=== PATIENT | male | born 1970 | race Caucasian/White ===

== ENCOUNTER 2016-05-08 15:46 | Day surgery (SDCO) | payer OTHER ==
[2016-05-08 16:17] LABS: BASOPHIL 0.5 % (0-2); EOSINOPHIL 1.3 % (0-5); HCT 42.8 % (42.0-52.0); HGB 17.7 g/dl (13.2-18.0); LYMPHOCYTE 30.7 % (15-48); MCH 36.5 pg (25.0-31.0); MCHC 41.4 g/dL (32.0-36.0); MCV 88.2 fL (78.0-100.0); MONOCYTE 17.2 % (0-12); MPV 9.7 fL (6.0-9.5); NEUTROPHIL 50.3 % (41-80); PLT 290 K/uL (150-400); RBC 4.85 M/uL (4.70-6.00); RDW 12.1 % (11.5-14.0); WBC 9.3 K/uL (4.0-10.5)
[2016-05-08 16:43] LABS: CREATININE 0.5 mg/dL (0.7-1.2); POTASSIUM 4.1 mmol/L (3.5-5.1)
[2016-05-08 17:21] LABS: BILIRUBIN NEGATIVE (NEGATIVE); BLOOD TRACE-INTACT Ery/uL (NEGATIVE); CLARITY CLEAR (CLEAR); COLOR COLORLESS (YELLOW); GLUCOSE (U) 3+ mg/dL (NORMAL); KETONE (U) NEGATIVE (NEGATIVE); LEUKOCYTES NEGATIVE Leu/uL (NEGATIVE); NITRITE NEGATIVE (NEGATIVE); PROTEIN NEGATIVE (NEGATIVE); UROBILINOGEN 0.2 mg/dL (0.2-1.0)
[2016-05-08 17:25] LABS: BACTERIA TRACE; URINARY RBC RARE
[2016-05-09 00:09] LABS: CKMB 1.07 ng/mL (0.97-4.94); TROPONIN T < 0.010 ng/mL
[2016-05-09 06:13] LABS: BASOPHIL 0.3 % (0-2); EOSINOPHIL 3.1 % (0-5); HCT 39.5 % (42.0-52.0); HGB 14.9 g/dl (13.2-18.0); LYMPHOCYTE 28.9 % (15-48); MCH 33.5 pg (25.0-31.0); MCHC 37.7 g/dL (32.0-36.0); MCV 88.8 fL (78.0-100.0); MONOCYTE 8.1 % (0-12); MPV 9.5 fL (6.0-9.5); NEUTROPHIL 59.6 % (41-80); PLT 235 K/uL (150-400); RBC 4.45 M/uL (4.70-6.00); RDW 12.1 % (11.5-14.0); WBC 5.9 K/uL (4.0-10.5)
[2016-05-09 06:17] LABS: CREATININE 0.6 mg/dL (0.7-1.2); POTASSIUM 4.2 mmol/L (3.5-5.1)
[2016-05-09 06:19] LABS: CKMB 1.03 ng/mL (0.97-4.94); TROPONIN T < 0.010 ng/mL
--- NOTE | 2016-05-09 07:30 | NUR ---
IN TO ASSESS PT;PT IMMEDIATELY STATED "CAN YOU PLEASE STOP THIS" REFERRING TO IV PUMP THAT WAS ALARMING. STATED "I TOLD THEM AN HOUR AGO & NOTHING HAPPEN". PT W/RAISED VOICE. STATED "I AM SORRY, I AM JUST AGITATED, I HAVEN'T HAD ANY THING TO EAT ALL NIGHT. THE ILIANA THAT WAS JUST IN HERE, WAS ONLY IN HERE 5 MINUTES AND LEFT. I DIDN'T UNDERSTAND ANYTHING HE SAID, HE WAS SO FAST". PT WAS ADVISED WOULD HAVE CARDIOLOGY SPEAK W/HIM AGAIN. CARDIOLOGY INFORMED OF REQUEST. DR. HELM AT BEDSIDE, AGAIN, PT EXPRESSED IN RAISED VOICE "I AM SORRY, I AM AGITATED". DR. HELM EXPLAIN THOROUGHLY PLAN OF CARE AND DIAGNOSIS. PT VERBALIZED UNDERSTANDING.
[2016-05-09] MEDS ORDERED: ASPIRIN CHEWABL81 MG PO (10:54)
[2016-05-09] MEDS ORDERED: LOPRESSOR25 MG PO (10:54)
[2016-05-09] MEDS ORDERED: METFORMIN HCL500 MG PO (10:54)
== END 2016-05-09 11:50 | disposition home or self-care (01) ==
LOC: FER 15:46 → FTCU 18:19
PROVIDERS: Emergency Medicine; ADMIT Internal Medicine Nephrology
DX: I48.91 Unspecified atrial fibrillation (principal); I10 Essential (primary) hypertension; E11.9 Type 2 diabetes mellitus without complications; E87.2 Acidosis; Z88.1 Allergy status to other antibiotic agents
CPT/HCPCS: 36415; 36600; 71010; 80048; 80061; 81001; 82009; 82550; 82553; 82803; 83036; 84439; 84443; 84481; 84484; 85025; 93005; G0378; J0282

== ENCOUNTER → 2020-03-03 | Day surgery (SDC) | payer OTHER ==
[~2020-03-03] MED LIST: AMIODARONE HCL100 MG PO; ASPIRIN CHEWABL81 MG PO; CARDIZEM30 MG PO; DIAZEPAM10 MG PO; JARDIANCE PO; LIPITOR 10MG TA10 MG PO; LOPRESSOR25 MG PO; LOTENSIN 10MG T10 MG PO; METFORMIN HCL1000 MG PO; METFORMIN HCL500 MG PO; ONDANSETRON ODT8 MG PO; PERCOCET 5-3251 EACH PO; PREDNISONE10 M1 PO; PRINIVIL10 MG PO; VITAMIN D350 MC3 PO; xarelto PO
[2020-03-03 12:44] LABS: HCT 39.5 % (42.0-52.0); MCHC 32.9 g/dL (32.0-36.0); MCV 94.3 fL (78.0-100.0); MPV 9.2 fL (6.0-9.5); RBC 4.19 M/uL (4.70-6.00); RDW 12.3 % (11.5-14.0); WBC 9.2 K/uL (4.0-10.5)
[2020-03-03 12:58] LABS: BUN/CREAT RATIO (CALC) 19.7 RATIO; CREATININE 0.76 mg/dL (0.67-1.17); POTASSIUM 3.8 mmol/L (3.5-5.1)
== END | disposition home or self-care (01) ==
LOC: FAS 10:57
PROVIDERS: Surgery
DX: I87.2 Venous insufficiency (chronic) (peripheral) (principal); C18.9 Malignant neoplasm of colon, unspecified; E11.9 Type 2 diabetes mellitus without complications; F17.200 Nicotine dependence, unspecified, uncomplicated; I10 Essential (primary) hypertension; I48.0 Paroxysmal atrial fibrillation; N52.9 Male erectile dysfunction, unspecified; E78.5 Hyperlipidemia, unspecified; G47.30 Sleep apnea, unspecified; E55.9 Vitamin D deficiency, unspecified; Z79.01 Long term (current) use of anticoagulants; Z79.84 Long term (current) use of oral hypoglycemic drugs; Z79.899 Other long term (current) drug therapy; Z88.1 Allergy status to other antibiotic agents; Z88.5 Allergy status to narcotic agent; Z90.49 Acquired absence of other specified parts of digestive tract; Z20.828 Contact with and (suspected) exposure to other viral communicable diseases
CPT/HCPCS: 36415; 71045; 76000; 80048; C1788; J0690; J1644; J2250; J2704; J3010; J7120; U0002

== ENCOUNTER 2020-08-16 11:48 | Emergency (ER) | payer OTHER ==
[2020-08-16 13:29] LABS: BASOPHIL 0.8 % (0-2); EOSINOPHIL 2.7 % (0-5); HCT 39.2 % (42.0-52.0); HGB 13.3 g/dl (13.2-18.0); LYMPHOCYTE 49.6 % (15-48); MCH 30.7 pg (25.0-31.0); MCHC 33.9 g/dL (32.0-36.0); MCV 90.5 fL (78.0-100.0); MONOCYTE 11.8 % (0-12); MPV 9.6 fL (6.0-9.5); NEUTROPHIL 34.6 % (41-80); NRBC 0; PLT 156 K/uL (150-400); RBC 4.33 M/uL (4.70-6.00); RDW 15.9 % (11.5-14.0); WBC 3.7 K/uL (4.0-10.5)
[2020-08-16 13:32] LABS: BILIRUBIN NEGATIVE (NEGATIVE); BLOOD NEGATIVE Ery/uL (NEGATIVE); CLARITY CLEAR (CLEAR); COLOR YELLOW (YELLOW); GLUCOSE (U) 3+ mg/dL (NORMAL); LEUKOCYTES NEGATIVE Leu/uL (NEGATIVE); NITRITE NEGATIVE (NEGATIVE); PROTEIN NEGATIVE (NEGATIVE); UROBILINOGEN 0.2 mg/dL (0.2-1.0)
[2020-08-16 14:19] LABS: ALBUMIN 3.2 g/dL (3.4-5.0); BILIRUBIN - TOTAL 0.4 mg/dL (0.2-1.0); CREATININE 0.73 mg/dL (0.67-1.17); GLOBULIN (CALCULATION) 4.2 g/dL; POTASSIUM 3.8 mmol/L (3.5-5.1); TOTAL PROTEIN 7.4 g/dL (6.4-8.2)
== END 2020-08-16 16:00 | disposition home or self-care (01) ==
LOC: FER 11:48
PROVIDERS: Nurse Practitioner Family
DX: K59.00 Constipation, unspecified (principal); I48.91 Unspecified atrial fibrillation; Z85.038 Personal history of other malignant neoplasm of large intestine; Z88.1 Allergy status to other antibiotic agents; Z90.49 Acquired absence of other specified parts of digestive tract; Z98.890 Other specified postprocedural states
CPT/HCPCS: 36415; 80053; 81003; 85025; J1642; J7030; Q9967